=== PATIENT | male | born 2000 | race American Indian/Alaskan Native ===

== ENCOUNTER 2021-02-01 02:30 | Emergency (ER) | payer SELFPAY ==
--- NOTE | 2021-02-01 02:52 | Emergency Department Report ---
- General Chief Complaint: Upper Respiratory Infection Stated Complaint: BODYACHES, HANK Time Seen by Provider: 02/01/21 02:40 Source: patient Mode of arrival: Ambulatory Limitations: No Limitations - History of Present Illness Initial Comments: Patient is a 20-year-old male presents emergency with complaints of a cough that began 2 days ago. He has associated generalized body aches, shortness of breath, chest pain. He denies any fever, vomiting, diarrhea, ear pain. Patient states he has had a positive sick contact at work who had similar symptoms but he does not know what the person had. He has not been vaccinated for COVID-19. Past medical history of asthma. No allergies to medications. He is a current every day smoker half a pack a day. - Related Data Previous Rx's Medication Instructions Recorded Last Taken Type Albuterol Sulfate [Proventil Hfa] 1 - 2 puff IH TID PRN #1 hfa.aer.ad 02/01/21 Unknown Rx Benzonatate [Tessalon Perles] 100 mg PO Q8HR PRN #12 capsule 02/01/21 Unknown Rx guaiFENesin ER [Mucinex ER] 600 mg PO Q12H #14 tablet.er 02/01/21 Unknown Rx Allergies Allergy/AdvReac Type Severity Reaction Status Date / Time No Known Allergies Allergy Verified 09/25/15 23:37 ED Review of Systems ROS: Stated complaint: BODYACHES, HANK Other details as noted in HPI Comment: All other systems reviewed and negative ED Past Medical Hx - Past Medical History Previous Medical History?: No - Surgical History Past Surgical History?: No - Social History Smoking Status: Current Every Day Smoker Substance Use Type: None - Medications Home Medications: Home Medications Medication Instructions Recorded Confirmed Last Taken Type Albuterol Sulfate [Proventil Hfa] 1 - 2 puff IH TID PRN #1 hfa.aer.ad 02/01/21 Unknown Rx Benzonatate [Tessalon Perles] 100 mg PO Q8HR PRN #12 capsule 02/01/21 Unknown Rx guaiFENesin ER [Mucinex ER] 600 mg PO Q12H #14 tablet.er 02/01/21 Unknown Rx ED Physical Exam - General Limitations: No Limitations General appearance: alert, in no apparent distress - Head Head exam: Present: atraumatic, normocephalic - Eye Eye exam: Present: normal appearance - ENT ENT exam: Present: mucous membranes moist - Respiratory Respiratory exam: Present: normal lung sounds bilaterally. Absent: respiratory distress, wheezes, rales, rhonchi, stridor, chest wall tenderness, accessory muscle use, decreased breath sounds, prolonged expiratory - Cardiovascular Cardiovascular Exam: Present: regular rate, normal rhythm, normal heart sounds. Absent: systolic murmur, diastolic murmur, rubs, gallop - Neurological Exam Neurological exam: Present: alert, oriented X3 - Psychiatric Psychiatric exam: Present: normal affect, normal mood - Skin Skin exam: Present: warm, dry, intact ED Course Vital Signs 02/01/21 02/01/21 02:34 03:37 Temperature 98.7 F Pulse Rate 103 H 93 H Respiratory 18 12 Rate Blood Pressure 139/66 Blood Pressure 127/72 [Left] O2 Sat by Pulse 94 98 Oximetry ED Medical Decision Making - Lab Data Result diagrams: 02/01/21 02:52 02/01/21 02:52 Lab Results 02/01/21 02/01/21 Range/Units 02:52 02:52 WBC 11.8 H (4.5-11.0) K/mm3 RBC 5.78 H (3.65-5.03) M/mm3 Hgb 14.8 (11.8-15.2) gm/dl Hct 46.3 H (35.5-45.6) % MCV 80 L (84-94) fl MCH 26 L (28-32) pg MCHC 32 (32-34) % RDW 15.1 (13.2-15.2) % Plt Count 300 (140-440) K/mm3 Lymph % (Auto) 14.2 (13.4-35.0) % Hinds % (Auto) 10.3 H (0.0-7.3) % Eos % (Auto) 1.4 (0.0-4.3) % Baso % (Auto) 0.4 (0.0-1.8) % Lymph # (Auto) 1.7 (1.2-5.4) K/mm3 Hinds # (Auto) 1.2 H (0.0-0.8) K/mm3 Eos # (Auto) 0.2 (0.0-0.4) K/mm3 Baso # (Auto) 0.0 (0.0-0.1) K/mm3 Seg Neutrophils % 73.7 H (40.0-70.0) % Seg Neutrophils # 8.7 H (1.8-7.7) K/mm3 Sodium 138 (137-145) mmol/L Potassium 3.8 (3.6-5.0) mmol/L Chloride 103.4 (98-107) mmol/L Carbon Dioxide 23 (22-30) mmol/L Anion Gap 15 mmol/L BUN 9 (9-20) mg/dL Creatinine 1.0 (0.8-1.3) mg/dL Estimated GFR > 60 ml/min BUN/Creatinine Ratio 9 % Glucose 109 H (75-100) mg/dL Calcium 9.8 (8.4-10.2) mg/dL Total Bilirubin 0.70 (0.1-1.2) mg/dL AST 19 (5-40) units/L ALT 26 (7-56) units/L Alkaline Phosphatase 58 (35-129) units/L Total Protein 7.7 (6.3-8.2) g/dL Albumin 4.5 (3.9-5) g/dL Albumin/Globulin Ratio 1.4 % Vital Signs 02/01/21 02/01/21 02:34 03:37 Temperature 98.7 F Pulse Rate 103 H 93 H Respiratory 18 12 Rate Blood Pressure 139/66 Blood Pressure 127/72 [Left] O2 Sat by Pulse 94 98 Oximetry - Radiology Data Radiology results: report reviewed Ordering Physician: DENAE PEMBERTON Date of Service: 02/01/21 Procedure(s): XR chest routine 2V Accession Number(s): [id number] cc: DENAE PEMBERTON Fluoro Time In Minutes: CHEST 2 VIEWS INDICATION / CLINICAL INFORMATION: Cough, chest pain and shortness of breath. COMPARISON: None available. FINDINGS: SUPPORT DEVICES: None. HEART / MEDIASTINUM: The heart size and pulmonary vasculature are normal. The aorta is normal in caliber. LUNGS / PLEURA: No significant pulmonary or pleural abnormality. No pneumothorax. ADDITIONAL FINDINGS: No significant additional findings. IMPRESSION: No acute findings. Signer Name: Barrett Eason MD Signed: 02/01/2021 3:12 AM Workstation Name: [id number] Transcribed By: RT Dictated By: Barrett Eason MD Electronically Authenticated By: Barrett Eason MD Signed Date/Time: 02/01/21311 DD/ 0 TD/TT: - Medical Decision Making Patient is a 20-year-old male presents emergency with complaints of a cough that began 2 days ago. He has associated generalized body aches, shortness of breath, chest pain. He denies any fever, vomiting, diarrhea, ear pain. Patient states he has had a positive sick contact at work who had similar symptoms but he does not know what the person had. He has not been vaccinated for COVID-19. Past medical history of asthma. No allergies to medications. He is a current every day smoker half a pack a day. Initial vitals with mild tachycardia which improved upon repeat. Labs are stable. Chest x-ray with no acute process. Breath sounds are clear bilaterally, no wheezing, no rales, no rhonchi. No clinical signs of acute asthma exacerbation. No clinical signs of bacterial pneumonia or bacterial bronchitis at this time. Ambulatory oxygen saturation performed by [employer] and patient was able to maintain oxygen saturation of 97% or greater on room air. Patient given prescription for medication. Discussed the importance of outpatient follow-up. Discussed strict return precautions. Advised patient Please take medication as prescribed. May use Tylenol or ibuprofen as needed for body aches or headache. Increase your fluid intake. Follow-up with your primary care doctor. Return to emergency room for any new or worsening symptoms. Recommend outpatient COVID-19 testing and if positive will need to self quarantine for 10 days from onset your symptoms. Please stop smoking. Critical care attestation.: If time is entered above; I have spent that time in minutes in the direct care of this critically ill patient, excluding procedure time. ED Disposition Clinical Impression: Tobacco abuse Upper respiratory infection Qualifiers: URI type: unspecified URI Qualified Code(s): J06.9 - Acute upper respiratory infection, unspecified Disposition: 01 HOME / SELF CARE / HOMELESS Is pt being admited?: No Does the pt Need Aspirin: No Condition: Stable Instructions: Viral Respiratory Infection, Steps to Quit Smoking Additional Instructions: Please take medication as prescribed. May use Tylenol or ibuprofen as needed for body aches or headache. Increase your fluid intake. Follow-up with your primary care doctor. Return to emergency room for any new or worsening symptoms. Recommend outpatient COVID-19 testing and if positive will need to self quarantine for 10 days from onset your symptoms. Please stop smoking. Prescriptions: guaiFENesin ER [Mucinex ER] 600 mg PO Q12H #14 tablet.er Albuterol Sulfate [Proventil Hfa] 1 - 2 puff IH TID PRN #1 hfa.aer.ad PRN Reason: shortness of breath/wheezing Benzonatate [Tessalon Perles] 100 mg PO Q8HR PRN #12 capsule PRN Reason: cough Referrals: PRIMARY MD DARLINE [Primary Care Provider] - 2-3 Days EMILEE FRAIRE MD [Staff Physician] - 2-3 Days [facility] [Provider Group] - 2-3 Days Forms: Work/School Release Form(ED) Time of Disposition: 03:49 Print Language: RUSSIAN
--- NOTE | 2021-02-01 03:17 | XRay Report ---
CHEST 2 VIEWS INDICATION / CLINICAL INFORMATION: Cough, chest pain and shortness of breath. COMPARISON: None available. FINDINGS: SUPPORT DEVICES: None. HEART / MEDIASTINUM: The heart size and pulmonary vasculature are normal. The aorta is normal in luis radha. LUNGS / PLEURA: No significant pulmonary or pleural abnormality. No pneumothorax. ADDITIONAL FINDINGS: No significant additional findings. IMPRESSION: No acute findings. Signer Name: Barrett Eason MD Signed: 02/01/2021 3:12 AM Workstation Name: [id number]
[2021-02-01 03:20] LABS: Basophils % (Auto) 0.4 % (0.0-1.8); Eosinophils # (Auto) 0.2 K/mm3 (0.0-0.4); Eosinophils % (Auto) 1.4 % (0.0-4.3); Hematocrit 46.3 % (35.5-45.6); Hemoglobin 14.8 gm/dl (11.8-15.2); Lymphocytes # (Auto) 1.7 K/mm3 (1.2-5.4); Lymphocytes % (Auto) 14.2 % (13.4-35.0); Mean Corpuscular HGB Conc 32 % (32-34); Mean Corpuscular Volume 80 fl (84-94); Monocytes # (Auto) 1.2 K/mm3 (0.0-0.8); Monocytes % (Auto) 10.3 % (0.0-7.3); Platelet Count 300 K/mm3 (140-440); Red Blood Count 5.78 M/mm3 (3.65-5.03); Red Cell Distribution Width 15.1 % (13.2-15.2)
[2021-02-01 03:28] LABS: Alanine Aminotransferase 26 units/L (7-56); Albumin 4.5 g/dL (3.9-5); BUN/Creatinine Ratio 9; Blood Urea Nitrogen 9 mg/dL (9-20); Calcium 9.8 mg/dL (8.4-10.2); Hemolysis Index 11
[2021-02-01 03:38] VITALS: BP 127/72
== END 2021-02-01 04:01 | disposition home or self-care (01) ==
LOC: ED 02:30
DX: Z72.0 Tobacco use (principal); J06.9 Acute upper respiratory infection, unspecified
CPT/HCPCS: 36415; 71046; 80053; 85025; 99283